=== PATIENT | male | born 1985 | race Asian ===

== ENCOUNTER 2019-09-25 22:11 | Emergency (ER) | payer OTHER ==
--- NOTE | 2019-09-25 22:30 | EDM.PDOC ---
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 ED EXAM, SKIN/RASH Exam: See Below Exam Limited By: No Limitations General Appearance: Alert, No Apparent Distress Eye Exam: Bilateral Eye: EOMI Ears: Normal External Exam, Hearing Grossly Normal Throat/Mouth: Normal Voice Head: Atraumatic, Normocephalic Neck: Normal Inspection Cardiovascular: Normal Peripheral Pulses Extremities: Other (1 cm superficial laceration bottom of left foot, mid arch no active bleeding , no swelling. no FB visible.) Neurological: Alert, Oriented, Normal Reflexes, No Motor/Sensory Deficits Psychiatric: Normal Affect Skin: Warm, Dry, Wound/Incision (left foot.) Course - Vital Signs Last Recorded V/S: Last Vital Signs Temp 98.1 F 09/25/19 22:28 Pulse 99 09/25/19 22:28 Resp 18 09/25/19 22:28 BP 131/98 H 09/25/19 22:28 Pulse Ox 100 09/25/19 22:28 - Orders/Labs/Meds Meds: Medications Discontinued Medications Generic Name Dose Route Start Last Admin Trade Name Alize PRN Reason Stop Dose Admin Bacitracin 1 dose 09/25/19 23:38 09/25/19 23:43 Bacitracin Oint 1 Gm TOP 09/25/19 23:39 1 dose ONETIME ONE Administration - Re-Assessments/Exams Free Text/Narrative Re-Assessment/Exam: 09/28/19 02:54 Informed results. Instructed to follow up if increased pain swelling or drainage from foot. No FB visible on xray, if glass or non metal object, xray would not show. Departure - Departure Time of Disposition: 23:39 Disposition: Home, Self-Care 01 Condition: Good Clinical Impression: Puncture wound - injury - Discharge Information *PRESCRIPTION DRUG MONITORING PROGRAM REVIEWED*: No *COPY OF PRESCRIPTION DRUG MONITORING REPORT IN PATIENT MARIAH: No Instructions: Puncture Wound, [id number] Referrals: PCP,None [Primary Care Provider] - Forms: ED Department Discharge Additional Instructions: soak foot twice xin warm soapy water cover with dressing and abandaide wear shoos, keep clean and dry follow up increased redness or swelling Sepsis Event Note (ED) - Evaluation Sepsis Screening Result: No Definite Risk
--- NOTE | 2019-09-25 23:09 | CR ---
PROCEDURE INFORMATION: Exam: XR Left Foot Exam date and time: 09/25/2019 10:54 PM Age: 34 years old Clinical indication: Other: Paperclip points to laceration TECHNIQUE: Imaging protocol: XR Left foot. Views: 1 or 2 views. COMPARISON: No relevant prior studies available. FINDINGS: Bones/joints: Normal. Soft tissues: Normal. IMPRESSION: No acute findings. No radiopaque foreign body.
[2019-09-25] MEDS ORDERED: Bacitracin Oint 1 GM U/D Packet TOP ONE (23:38)
== END 2019-09-25 23:46 | disposition home or self-care (01) ==
LOC: DL.ED 22:11
DX: S91.332A Puncture wound without foreign body, left foot, initial encounter (principal); W26.9XXA Contact with unspecified sharp object(s), initial encounter
CPT/HCPCS: 73620-LT; 99283-25